=== PATIENT | male | born 1955 | race Caucasian/White ===

== ENCOUNTER 2018-02-02 10:21 | Emergency (ER) | payer OTHER ==
--- NOTE | 2018-02-02 10:55 | EDPHY ---
H & P Time Seen by Provider: 02/02/18 10:24 HPI/ROS: CHIEF COMPLAINT: Right calf pain History by patient HISTORY OF PRESENT ILLNESS: 62-year-old male with history of hypertension and high cholesterol presents complaining of intermittent episodes of severe sharp right calf pain which began about a week ago. He says he played golf the day before but there is no specific trauma. The next day he had an episode where the pain was so severe double him over. A certain leg position that he cannot define seems to bring it on. It lasts briefly. He has trouble reproducing it. It is not worse with ambulation or movement. There is no associated weakness or numbness. He was concerned after looking online that he might have a blood clot because he flies lot for work. 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 He has no prior history of VTE. He does not smoke. There is no family history of VTE. He denies any chest pain or shortness of breath. REVIEW OF SYSTEMS: As in HPI, and all other systems reviewed and are negative Smoking Status: Never smoked Physical Exam: General Appearance: Alert and no distress. Head: Normocephalic, atraumatic Eyes: Pupils equal and round no injection. Extraocular movements are intact. Musculoskeletal: Neck is supple and nontender. Extremities: Right leg without swelling or deformity or tenderness. DP and PT pulses 2+ and equal to the left. Full range of motion of hip ankle and knee without pain. Wiggles toes. No palpable cords. Homans negative. Achilles tendon intact. Skin: No rashes or lesions except as described above. Constitutional: Initial Vital Signs Temperature (C) 36.8 C 02/02/18 10:29 Heart Rate 79 02/02/18 10:29 Respiratory Rate 16 02/02/18 10:29 Blood Pressure 162/90 H 02/02/18 10:29 O2 Sat (%) 94 02/02/18 10:29 O2 Delivery Mode Room Air Allergies/Adverse Reactions: No Known Allergies Allergy (Verified 02/02/18 10:29) Home Medications: Medication Instructions Recorded Metformin HCl 02/02/18 Simvastatin 02/02/18 Toprol Xl 02/02/18 MDM/Departure - [facility] ED Course/Re-evaluation: 62-year-old man presents with intermittent right calf pain worried about DVT. Patient has minimal risk factors for DVT. D-dimer is negative. Therefore we have ruled out DVT is cause of his symptoms and this low pretest probability patient. I discussed this with the patient. He was given reassurance as there is no obvious emergent cause of his symptoms. I suspect musculoskeletal. Patient is discharged home in stable condition. - Depart Disposition: Home, Routine, Self-Care Clinical Impression: Right calf pain Condition: Good Instructions: Leg Pain (ED) Additional Instructions: You were seen by Dr. Josee Arellano today. Your D-dimer to test today was negative, ruling out blood clot as cause of her symptoms. Continue to remain active. Try to avoid movements that exacerbate her symptoms. Please follow up with her primary care physician. Return for any worsening or new concerns. Referrals: Jose Raul Disla DO [Primary Care Provider] - As per Instructions
[2018-02-02 11:37] VITALS: BP 151/68
== END 2018-02-02 11:37 | disposition home or self-care (01) ==
LOC: CED 10:21
DX: M79.662 Pain in left lower leg (principal); I10 Essential (primary) hypertension; E78.00 Pure hypercholesterolemia, unspecified